=== PATIENT | female | born 1980 | race American Indian/Alaskan Native ===

== ENCOUNTER 2017-01-08 08:36 | Outpatient (CLI) | payer BC ==
--- NOTE | 2017-01-07 15:43 | Ultrasound Report ---
TRANSABDOMINAL AND TRANSVAGINAL PELVIC ULTRASOUND: 01/07/17 11:12:00 CLINICAL: Pelvic pain. FINDINGS: Transabdominal and transvaginal pelvic ultrasound demonstrated a normal retroverted uterus measuring 7.2 x 3.7 x 4.5 cm. Normal uterine contour and echogenicity. No uterine fibroid or mass.The endometrium is normal and measures 5 mm AP thickness. Normal ovaries. A dominant follicle in the right ovary measures 1 cm. The right ovary measures 2.5 x 1.7 x 2.2 cm. A dominant follicle in the left ovary measures 1.5 cm. The left ovary measures 2.2 x 2.0 x 1.9 cm.cm. No adnexal mass. Minimal free fluid. Normal urinary bladder. IMPRESSION: Normal uterus and ovaries.
--- NOTE | 2017-01-08 10:04 | Ultrasound Report ---
ABDOMINAL ULTRASOUND: 01/08/17 08:36:00 CLINICAL: Right upper quadrant abdominal pain. FINDINGS: High-resolution ultrasound demonstrated a normal size liver with moderate diffuse increased echogenicity. Three right hepatic cysts measure 1.9 x 1.8 x 1.9 cm, 1.4 x 1.1 x 1.5 cm and 3.0 x 1.4 x 2.1 cm. No liver mass. Normal hepatic vasculature and inferior vena cava. Partially contracted gallbladder with no stones. The gall bladder wall measures 3.0 mm in thickness. The bile ducts are normal. The common bile duct measures 3.0 mm diameter. The pancreas is well imaged and normal. Normal abdominal aorta. A normal spleen measures 8.6cm. Normal kidneys with normal renal echogenicity and normal non-dilated renal collecting systems and ureters. The right kidney measures 11.6 x 4.5 x 3.8cm. The left kidney measures 10.9 x 4.4 x 5.3cm. No renal mass or calculus. No ascites or mass. IMPRESSION: 1. Moderate hepatic steatosis but no hepatomegaly. 2. Three benign right hepatic cysts. 3. No cholelithiasis.
== END 2017-01-08 08:37 | disposition home or self-care (01) ==
LOC: SPVWC 08:36
PROVIDERS: ATTEND Internal Medicine
DX: K76.0 Fatty (change of) liver, not elsewhere classified (principal); K76.89 Other specified diseases of liver; K82.0 Obstruction of gallbladder
CPT/HCPCS: 76700; 76830; 76856